=== PATIENT | female | born 1965 | race Caucasian/White ===

== ENCOUNTER → 2018-12-21 15:06 | Emergency (ER) | payer BC ==
--- NOTE | 2018-12-21 16:32 | ED ---
Lower Extremity - HPI Summary HPI Summary: 53-year-old female presents with left knee pain today. She states that she slipped on ice and twisted her knee. States that it rotated laterally. She has pain over the medial aspect of the knee. She denies any popping or locking. She states the pain seems to radiate up her thigh. No numbness or tingling. No previous fracture area. Denies any ankle pain. No hip pain. No other injury. States that when she tries to weight on it feels like it may give out. - History of Current Complaint Chief Complaint: EDExtremityLower Stated Complaint: FALL/LEFT KNEE PAIN Time Seen by Provider: 12/21/18 15:26 Pain Intensity: 8 - Allergies/Home Medications Allergies/Adverse Reactions: Allergies Allergy/AdvReac Type Severity Reaction Status Date / Time MS Amoxicillin [Amoxicillin] Allergy Severe Rash Verified 09/22/17 10:11 MS Azithromycin Allergy Severe Hives Verified 09/22/17 10:11 [From Zithromax] MS Cefprozil [From Cefzil] Allergy Severe Hives Verified 09/22/17 10:11 MS Clarithromycin Allergy Severe Hives Verified 09/22/17 10:11 [From Biaxin] MS Doxycycline [Doxycycline] Allergy Severe Hives Verified 09/22/17 10:11 MS Guaifenesin [Guaifenesin] Allergy Severe Hives Verified 09/22/17 10:11 MS Moxifloxacin [From Avelox] Allergy Severe Hives Verified 09/22/17 10:11 MS Sulfa Drugs [Sulfa Drugs] Allergy Severe Rash Verified 09/22/17 10:11 Adhesive Tape Allergy Intermediate Hives Verified 09/22/17 10:11 MS Penicillins [Penicillins] Allergy Intermediate Hives Verified 09/22/17 10:11 PMH/Surg Hx/FS Hx/Imm Hx Endocrine/Hematology History: Reports: Hx Anemia - HAD LOW IRON Denies: Hx Diabetes Cardiovascular History: Reports: Hx Hypertension Denies: Hx Congestive Heart Failure, Hx Pacemaker/ICD Respiratory History: Reports: Hx Asthma, Hx Sleep Apnea GI History: Reports: Hx Irritable Bowel - ALTERNATING, Other GI Disorders - now abd pain with nausea History: Denies: Hx Renal Disease Musculoskeletal History: Reports: Hx Arthritis, Hx Bursitis, Other Musculoskeletal History - arthritis of back Sensory History: Reports: Hx Contacts or Glasses - READING Denies: Hx Hearing Aid Opthamlomology History: Reports: Hx Contacts or Glasses - READING Psychiatric History: Reports: Hx Anxiety - STRESS RELATED, Hx Depression - SITUATIONAL, Hx Panic Disorder - ANXIETY - Cancer History Hx Chemotherapy: No Hx Radiation Therapy: No - Surgical History Surgery Procedure, Year, and Place: tubal ligation 2000,;. back SURGERY HERNIATED DISC 2004,;. deviated [id number],. tonsils CHILD;. SURGERY RIGHT SHOULDER ROTATOR CUFF/BURSITIS/ARTHRITIS/IMPINGEMENT 09/2016 Hx Anesthesia Reactions: No Infectious Disease History: No Infectious Disease History: Denies: Traveled Outside the [place] in Last 30 Days - Social History Alcohol Use: Occasionally Substance Use Type: Reports: None Smoking Status (MU): Never Smoked Tobacco Review of Systems Negative: Fever Negative: Chest Pain Negative: Shortness Of Breath Positive: Myalgia - left knee pain All Other Systems Reviewed And Are Negative: Yes Physical Exam Triage Information Reviewed: Yes Vital Signs On Initial Exam: Initial Vitals Temp Pulse Resp BP Pulse Ox 97.9 F 56 16 126/80 98 12/21/18 15:20 12/21/18 15:20 12/21/18 15:20 12/21/18 15:20 12/21/18 15:20 Vital Signs Reviewed: Yes Appearance: Positive: Well-Appearing Skin: Positive: Warm, Dry Head/Face: Positive: Normal Head/Face Inspection Eyes: Positive: Normal, Conjunctiva Clear ENT: Positive: Pharynx normal Respiratory/Lung Sounds: Positive: Clear to Auscultation, Breath Sounds Present Cardiovascular: Positive: Normal, RRR Abdomen Description: Positive: Nontender, Soft Bowel Sounds: Positive: Present Musculoskeletal: Positive: Limited @ - left knee with pain, Other - bruising noted to left knee, tenderness over medial aspect of left knee. neg anterior drawer and donavan Neurological: Positive: Normal Psychiatric: Positive: Normal Diagnostics - Vital Signs Vital Signs Temp Pulse Resp BP Pulse Ox 12/21/18 15:20 97.9 F 56 16 126/80 98 - Laboratory Lab Statement: Any lab studies that have been ordered have been reviewed, and results considered in the medical decision making process. - Radiology knee Radiology Interpretation Completed By: Radiologist Summary of Radiographic Findings: IMPRESSION: NO ACUTE OSSEOUS INJURY. IF SYMPTOMS PERSIST, RECOMMEND REPEAT IMAGING. Lower Extremity Course/Dx - Course Course Of Treatment: 53-year-old female presents with left knee pain today. She states that she slipped on ice and twisted her knee. States that it rotated laterally. She has pain over the medial aspect of the knee. She denies any popping or locking. She states the pain seems to radiate up her thigh. No numbness or tingling. No previous fracture area. Denies any ankle pain. No hip pain. No other injury. States that when she tries to weight on it feels like it may give out. On exam tenderness over the medial aspect of left knee. Neurovascular intact. X-rays normal. Gave knee imbrication as needed for comfort. Told to ice elevate. Told no improvement follow-up with orthopedic. Patient understands and agrees with plan. - Diagnoses Differential Diagnosis/HQI/PQRI: Positive: Fracture (Closed), Sprain, Strain Provider Diagnoses: Left knee pain Discharge - Sign-Out/Discharge Documenting (check all that apply): Patient Departure - Discharge Plan Condition: Good Disposition: HOME Patient Education Materials: Knee Pain (ED) Referrals: Osmar Nathan NP [Primary Care Provider] - Domonique Kerr MD [Medical Doctor] - Additional Instructions: Use immobilizer as needed Ice, elevate, Ibuprofen or Tylenol every 6 hours for pain Follow up with ortho if no improvement Return to ED if develop or any new or worsening symptoms - Billing Disposition and Condition Condition: GOOD Disposition: Home
[2018-12-21 17:40] VITALS: BP 131/76
== END | disposition home or self-care (01) ==
LOC: ED 15:06
DX: M25.562 Pain in left knee (principal); W18.40XA Slipping, tripping and stumbling without falling, unspecified, initial encounter; Y92.9 Unspecified place or not applicable; I10 Essential (primary) hypertension; J45.909 Unspecified asthma, uncomplicated; G47.30 Sleep apnea, unspecified; F41.9 Anxiety disorder, unspecified
CPT/HCPCS: 99282

== ENCOUNTER → 2019-01-04 05:36 | Day surgery (SDC) | payer BC ==
--- NOTE | 2019-01-01 14:40 | HP ---
HISTORY AND PHYSICAL: DATE OF ADMISSION/SURGERY: 01/04/19 DATE OF OFFICE VISIT: 01/01/19 SURGEON: Domonique Kerr MD * (DICTATED BY MARK MÁRQUEZ) PROCEDURE: Left open quadriceps tendon repair. CHIEF COMPLAINT: Left knee pain. HISTORY OF PRESENT ILLNESS: Ms. Mccollum is a 53-year-old female who slipped and fell and hyperflexed her left knee on 12/21/18. She felt a pop and is unable to straight leg raise. She has elected to proceed with surgery for a quad tendon rupture. PAST MEDICAL HISTORY: Hypertension, anemia, depression, sleep apnea, and asthma. PAST SURGICAL HISTORY: Tonsillectomy, tubal ligation, right rotator cuff repair , deviated septum surgery, and lumbar diskectomy. CURRENT MEDICATIONS: 1. Fexofenadine 180 mg twice a day. 2. Advair Diskus. 3. Vitamin B12. 4. Multivitamins. 5. Sertraline 100 mg a day. 6. Losartan potassium 50 mg daily. 7. ProAir HFA. 8. Vitamin D3. ALLERGIES: To PENICILLIN and SULFA. FAMILY HISTORY: Family history of cancer, coronary artery disease, and diabetes. SOCIAL HISTORY: This is a 53-year-old female. She lives alone. She does not smoke or use drugs, uses occasional alcohol. REVIEW OF SYSTEMS: A complete 14-point review of systems was reviewed with the patient, it was positive for asthma. She denies history of DVT, PE, hepatitis , HIV, or anesthesia problems. PHYSICAL EXAMINATION GENERAL: She is well developed, well nourished, in no acute distress. VITAL SIGNS: She stands 5 feet 7 inches tall, weighs 287 pounds. Her blood pressure 126/86, her heart rate is 84. HEENT: Normocephalic, atraumatic. NECK: Supple. No palpable lymph nodes. PULMONARY: The lungs are clear to auscultation bilaterally. CARDIAC: Regular rate and rhythm. Strong S1 and S2. ABDOMEN: Soft, nontender, nondistended. NEUROLOGIC: She is alert and oriented x3. MUSCULOSKELETAL: Left lower extremity: The skin is intact. There are open wounds or abrasions. There is still large joint effusion of the left knee. There is a palpable defect along the quadriceps tendon and she is unable to straight leg raise completely. She does have intact dorsiflexion and plantar flexion. She has 2+ dorsalis pedis pulses and intact sensation. ASSESSMENT AND PLAN: Ms. Mccollum is a 53-year-old female status post a fall with an acute quad tendon rupture on the left knee. She has elected to proceed with surgery. Her surgery is scheduled for 01/04/[address] Kerr discussed the risks and benefits of surgery and all of her questions were answered. She will follow with Dr. Kerr in 2 weeks after the surgery. MARK MÁRQUEZ [id number]/CPS #: [id number] MTDFloresita
[~2019-01-04 05:36] MED LIST: Buffered Lidocaine 1% SYRIN* 1 ML/SYRINGE INTRADERM ONE; Clindamycin 900 MG/D5W BAG(*) 900 MG/50 ML BAG IVPB ONE; Dexamethasone IV* 4 MG/ML 1 ML (4 MG) ONE; Famotidine IV* 10 MG/ML 2 ML (20 mg) IV ONE; Famotidine IV* 10 MG/ML 2 ML (20 mg) ONE; HYDROmorphone INJ1* 1 MG/ML SYRINGE ONE; Ketorolac INJ* 30 MG/ML 1 ML VIAL ONE; Lactated Ringers 1000 ML Bag* 1,000 ML IV SCH; Lidocaine 2% PF * 5 ML VIAL ONE; Midazolam* 1 MG/ML 5 ML VIAL (5 MG) ONE; Naloxone* 0.4 MG/ML 1 ML VIAL IV PRN; Ondansetron INJ* 2 MG/ML VIAL IV PRN; Ondansetron INJ* 2 MG/ML VIAL ONE; Propofol* 10 MG/ML 20 ML BTL ONE; ROPIVACAINE 5 MG/ML 30 ML BTL (0.5%) ONE; fentaNYL* 50 MCG/ML 2 ML VIAL (100 MCG VIAL) ONE; oxyCODONE/Acetamin 5/325 MG* TAB ONE
[2019-01-04] MEDS: fentaNYL* 50 MCG/ML 2 ML VIAL (100 MCG VIAL) IV PRN ×2 (09:37→09:48)
[2019-01-04] MEDS: HYDROmorphone INJ1* 1 MG/ML SYRINGE IV PRN ×2 (09:52→10:02)
[2019-01-04 12:08] VITALS: BP 107/75
--- NOTE | 2019-01-04 21:37 | OP ---
DATE OF OPERATION: 01/04/19 - [facility] DATE OF : 69 SURGEON: Domonique Kerr MD [employer] STORAGE CLERK: MARK Chau. Ms. Ruiz did help throughout the procedure with preparation of the leg, wound retraction, manipulation of the knee, and wound closure. ANESTHESIOLOGIST: Dr. Nguyễn. ANESTHESIA: General. PRE-OP DIAGNOSIS: Left distal quadriceps tendon rupture. POST-OP DIAGNOSIS: Left distal quadriceps tendon rupture. OPERATIVE PROCEDURE: Left open quadriceps tendon repair. TOURNIQUET TIME: 41 minutes. COMPLICATIONS: None. ESTIMATED BLOOD LOSS: 100 cc. SPECIMEN: None. BRIEF HISTORY/INDICATION: Ms. Mccollum is a 53-year-old female who had a hyperextension injury with a sudden pop in her left knee. She was unable to straight leg raise, quadriceps rupture has been confirmed. The patient was given both operative and nonoperative treatment options. She wished to proceed with surgical repair of the tendon. Informed consent was obtained from the patient. She understood the risks of surgery included, but were not limited to bleeding, infection, damage to nearby structures, continued pain, need for further surgery, intraoperative fracture, nerve palsy, failure of the repair, extensor lag, chronic quadriceps weakness, re-rupture of the tendon, anesthesia risk, stroke, heart attack, blood clot, and . She wished to proceed. INTRAOPERATIVE FINDINGS: Intraoperatively, the patient was noted to have a complete rupture of the distal quadriceps tendon and significant disruption of the medial retinaculum. The patient also had significant disruption of the lateral retinaculum along the musculotendinous junction at the distal quadriceps tendon. DESCRIPTION OF PROCEDURE: Ms. Mccollum was identified in the preanesthesia unit. Her left lower extremity was marked as the correct operative side. Informed consent was signed and placed in the chart. The patient was taken to the operating room and placed under general anesthesia. A tourniquet was placed on the left thigh. Left lower extremity was prepped and draped in the usual sterile fashion. Preop time-out was made to correctly identify the patient, side and site. Appropriate perioperative antibiotics were given within 1 hour of incision. Tourniquet was inflated and total tourniquet time for this procedure was 41 minutes. A midline incision was made and carried down to the extensor mechanism. Distal quadriceps tendon rupture was immediately visualized. There was significant disruption of both the medial and lateral retinaculum as well. Pulse irrigation was used to completely irrigate the knee joint with sterile saline. A rongeur was used to remove any fibrotic tissue. The devitalized distal tendon was carefully excised. Any devitalized tendon along the superior patella was carefully removed. A rongeur was used to establish a bony trough along the superior patella. Using #5 Ethibond and a Krackow suture technique, three #5 Ethibonds were run in a longitudinal fashion with Krackow technique distally along the distal quadriceps tendon. Next, a 2.5 drill bit was used to place two longitudinal bone tunnels through the patella. [employer] suture passer was used to thread the three ends of the #5 Ethibond through these tunnels and distally they were held off with the knee in extension. The repair was deemed to be quite stable and strong. Flexion of the knee to 40 degrees comfortable, no gaping. Additional # 5 Ethibonds were used to reinforce the repair at the prior rupture site. Additional #5 Ethibonds and 1-0 Vicryls were used to repair the medial and lateral retinaculum tearing. Tourniquet was turned down at 41 minutes. The rest of the incision was closed in a layered fashion using 0 and 2-0 Vicryl. Skin was closed using monocryl and dermabond. Sterile Adaptic, 4x4's, and Webril were used to cover the incision. Pravin wrap and cold pack were placed over this. The patient will be in extension in a knee immobilizer at all time. She can be weightbearing as tolerated. She will have Eliquis for DVT prophylaxis due to immobilization and her morbid obesity. She will follow up in clinic in 1 week's time for a wound check. [id number]/[facility] #: [id number] MARIANO
== END | disposition home or self-care (01) ==
LOC: OR 05:36
PROVIDERS: ATTEND Orthopaedic Surgery Adult Reconstructive Orthopaedic Surgery
DX: S76.112A Strain of left quadriceps muscle, fascia and tendon, initial encounter (principal); W01.0XXA Fall on same level from slipping, tripping and stumbling without subsequent striking against object, initial encounter; Y92.9 Unspecified place or not applicable; Z88.0 Allergy status to penicillin; I10 Essential (primary) hypertension; D64.9 Anemia, unspecified; J45.909 Unspecified asthma, uncomplicated; G47.33 Obstructive sleep apnea (adult) (pediatric); F41.8 Other specified anxiety disorders
CPT/HCPCS: 76000; A9270-GY; J1100; J1170; J1885; J2250; J2405; J2704; J2795; J3010